=== PATIENT | female | born 1945 | race Two or more races ===

== ENCOUNTER 2016-12-05 06:34 | Inpatient (IN) | payer OTHER, MEDICAID ==
[~2016-12-05] VITALS: Ht 154.9 cm; Wt 72.8 kg
[~2016-12-05 06:34] MED LIST: CARI-277 PO; FERR324T4 PO; HYDR-1421 PO; LORA2TAB89 PO; METO-158 PO; METO25TA3; OMEP20TA44 PO; PRO10T GT
[2016-12-05] MEDS ORDERED: SODIUM CHLORIDE 0.9% 1,000 ML IV ONE (07:18)
[2016-12-05 08:03] LABS: Basophils # (auto) 0 uL; Basophils % (auto) 0.6 % (0.0-2.0); CONDITION Y; Eosinophils # (auto) 0.1 uL; Eosinophils % (auto) 1.8 % (0.0-7.0); Hematocrit 41.1 % (36.0-46.0); Hemoglobin 13.8 g/dL (12.2-16.2); Lymphocytes # (auto) 1.1 uL; Lymphocytes % (auto) 19.8 % (10.0-50.0); Mean Corpuscular Hemoglobin 29.6 pg (28.0-32.0); Mean Corpuscular Hgb Conc. 33.5 g/dL (32.0-36.0); Mean Corpuscular Volume 88.4 fL (80.0-100.0); Mean Platelet Volume 7.4 fL (7.4-10.4); Monocytes # (auto) 0.5 uL; Monocytes % (auto) 8.4 % (0.0-12.0); Neutrophils # (auto) 3.9 uL; Neutrophils % (auto) 69.4 % (37.0-80.0); Platelet Count (auto) 230 10^3/uL (140-450); Red Cell Distribution Width 15.6 % (11.6-16.0); White Blood Cell 5.6 10^3/uL (4.4-10.8)
[2016-12-05 08:15] LABS: INR 0.95 (0.9-1.15); Partial Thromboplastin Time 25.1 sec (22.64-33.71); Prothrombin Time 10.4 sec (9.37-12.3)
[2016-12-05 08:30] LABS: B-Type Natriuretic Peptide 183.31 pg/mL (0-100)
[2016-12-05 08:38] LABS: Albumin 3.2 g/dL (3.4-5.0); Alkaline Phosphatase 117 U/L (45-117); Anion Gap 12 (5-15); Aspartate Aminotransferase 14 U/L (15-37); BUN/Creatinine Ratio 18.9; Bilirubin, Total 0.2 mg/dL (0.2-1.0); Blood Urea Nitrogen 21 mg/dL (7-18); Calcium 8.6 mg/dL (8.5-10.1); Carbon Dioxide 23 mmol/L (21-32); Chloride 112 mmol/L (98-107); GFR African American 62 mL/min; GFR Non-African American 52 mL/min; Glucose 107 mg/dL (74-106); Potassium 3.7 mmol/L (3.5-5.1); Sodium 147 mmol/L (136-145); Total Protein 6.4 g/dL (6.4-8.2)
[2016-12-05] MEDS: SODIUM CHLORIDE 0.9% 1,000 ML IV SCH ×2 (09:24→20:26)
[2016-12-05] MEDS ORDERED: ACETAMINOPHEN 500 MG TAB PO PRN (09:30)
[2016-12-05] MEDS ORDERED: CARISOPRODOL 350 MG TAB PO PRN (09:30)
[2016-12-05] MEDS ORDERED: HYDROcodone-ACET 5/325MG TAB PO PRN (09:30)
[2016-12-05] MEDS ORDERED: TEMAZEPAM 15 MG CAP PO PRN (09:30)
[2016-12-05] MEDS ORDERED: NITROGLYCERIN 0.4 MG SL TAB SL PRN (09:30)
[2016-12-05] MEDS ORDERED: PROMETHAZINE HCL 25 MG/ML 1ML IV PRN (09:30)
[2016-12-05] MEDS ORDERED: LORazepam 0.5 MG TAB PO PRN ×2 (09:30)
[2016-12-05] MEDS ORDERED: MORPHINE SULF INJ 2 MG/ML SYRINGE 1ML IV PRN (09:30)
[2016-12-05] MEDS ORDERED: LACTULOSE 20Gm/30ML SOLN PO PRN (09:30)
[2016-12-05] MEDS ORDERED: FUR20T (09:43)
[2016-12-05] MEDS ORDERED: POTA1TAB4 (09:43)
[2016-12-05] MEDS ORDERED: LISI10TA6 (09:43)
[2016-12-05] MEDS: METOPROLOL TARTRATE 50 MG TAB PO SCH ×2 (10:00→21:39)
[2016-12-05] MEDS ORDERED: FERROUS SULFATE 324 MG PO SCH (10:00)
[2016-12-05] MEDS: LEVOFLOXACIN 500MG 100 ML IV SCH (10:27)
[2016-12-05] MEDS: ENOXAPARIN SOD 40 MG/0.4 ML SYRINGE SC SCH (10:28)
[2016-12-05] MEDS: PANTOPRAZOLE 40 MG TAB PO SCH (10:28)
[2016-12-05] MEDS: FERROUS SULFATE 325 MG TAB PO SCH (10:28)
[2016-12-05] MEDS: CLINDAMYCIN 600MG IV 50 ML IV SCH ×2 (14:00→21:39)
[2016-12-05 17:15] VITALS: BP 139/56
[2016-12-05 20:00] VITALS: BP 144/77
[2016-12-05] MEDS: MORPHINE SULFATE 4 MG/ML SYRG IV PRN (21:40)
[2016-12-05 22:00] VITALS: BP 144/77
[2016-12-06 05:30] VITALS: BP 143/93
[2016-12-06] MEDS: SODIUM CHLORIDE 0.9% 1,000 ML IV SCH (05:35)
[2016-12-06] MEDS: CLINDAMYCIN 600MG IV 50 ML IV SCH (05:35)
[2016-12-06 05:39] LABS: Basophils # (auto) 0 uL; Basophils % (auto) 0.4 % (0.0-2.0); CONDITION Y; Eosinophils # (auto) 0.1 uL; Eosinophils % (auto) 2.3 % (0.0-7.0); Hematocrit 36.7 % (36.0-46.0); Hemoglobin 12.3 g/dL (12.2-16.2); Lymphocytes # (auto) 1.4 uL; Lymphocytes % (auto) 29.4 % (10.0-50.0); Mean Corpuscular Hemoglobin 29.6 pg (28.0-32.0); Mean Corpuscular Hgb Conc. 33.5 g/dL (32.0-36.0); Mean Corpuscular Volume 88.1 fL (80.0-100.0); Mean Platelet Volume 7.6 fL (7.4-10.4); Monocytes # (auto) 0.4 uL; Monocytes % (auto) 9.4 % (0.0-12.0); Neutrophils # (auto) 2.7 uL; Neutrophils % (auto) 58.5 % (37.0-80.0); Platelet Count (auto) 185 10^3/uL (140-450); Red Cell Distribution Width 15.8 % (11.6-16.0); White Blood Cell 4.7 10^3/uL (4.4-10.8)
[2016-12-06 05:58] LABS: Potassium 3.7 mmol/L (3.5-5.1)
[2016-12-06 06:06] LABS: Albumin 2.6 g/dL (3.4-5.0); BUN/Creatinine Ratio 20.5; Calcium 8.2 mg/dL (8.5-10.1)
[2016-12-06 06:08] LABS: Bilirubin, Total 0.3 mg/dL (0.2-1.0); Total Protein 5.3 g/dL (6.4-8.2)
[2016-12-06 08:00] VITALS: BP 144/77
[2016-12-06] MEDS: FERROUS SULFATE 325 MG TAB PO SCH (08:57)
[2016-12-06] MEDS: METOPROLOL TARTRATE 50 MG TAB PO SCH (08:57)
[2016-12-06] MEDS: LEVOFLOXACIN 500MG 100 ML IV SCH (08:57)
[2016-12-06 09:00] VITALS: BP 164/90
[2016-12-06] MEDS: PANTOPRAZOLE 40 MG TAB PO SCH (09:02)
[2016-12-06] MEDS: MORPHINE SULFATE 4 MG/ML SYRG IV PRN (09:02)
[2016-12-06] MEDS: ENOXAPARIN SOD 40 MG/0.4 ML SYRINGE SC SCH (09:02)
[2016-12-06 12:18] VITALS: BP 164/90
== END 2016-12-06 13:08 | disposition home or self-care (01) | DRG 607 ==
LOC: ER 06:34 → TELE 06:35 → TELE-E-ADS 12:32 → TELE-WESTW 16:39
PROVIDERS: ADMIT Internal Medicine; ATTEND Internal Medicine Geriatric Medicine
DX: I89.0 Lymphedema, not elsewhere classified (principal); I11.9 Hypertensive heart disease without heart failure; M19.90 Unspecified osteoarthritis, unspecified site; K21.9 Gastro-esophageal reflux disease without esophagitis; F41.9 Anxiety disorder, unspecified; Z83.3 Family history of diabetes mellitus; Z85.41 Personal history of malignant neoplasm of cervix uteri; Z90.49 Acquired absence of other specified parts of digestive tract; Z82.3 Family history of stroke; Z82.49 Family history of ischemic heart disease and other diseases of the circulatory system; Z79.899 Other long term (current) drug therapy; Z90.710 Acquired absence of both cervix and uterus; Z98.51 Tubal ligation status; Z88.0 Allergy status to penicillin; Z91.041 Radiographic dye allergy status
CPT/HCPCS: 36415; 71010; 72195; 80053; 83880; 84484; 85025; 85379; 85610; 85652; 85730; 87040; 93971; 94761; 96361; 96365; 96367; 96372; J1956; J3490

== ENCOUNTER 2017-01-08 15:26 | Emergency (ER) | payer OTHER, MEDICAID ==
[~2017-01-08] VITALS: Ht 152.4 cm; Wt 65.8 kg
[~2017-01-08 15:26] MED LIST changes: +FUR20T; +LISI10TA6; +POTA1TAB4
[2017-01-08 16:41] LABS: Albumin 3.4 g/dL (3.4-5.0); BUN/Creatinine Ratio 13.9; Bilirubin, Total 0.2 mg/dL (0.2-1.0); Potassium 3.3 mmol/L (3.5-5.1); Total Protein 6.6 g/dL (6.4-8.2)
[2017-01-08 17:42] LABS: Basophils # (auto) 0 uL; Basophils % (auto) 0.3 % (0.0-2.0); CONDITION Y; Eosinophils # (auto) 0.1 uL; Eosinophils % (auto) 0.9 % (0.0-7.0); Hematocrit 40.1 % (36.0-46.0); Hemoglobin 13.8 g/dL (12.2-16.2); Lymphocytes % (auto) 13.8 % (10.0-50.0); Mean Corpuscular Hemoglobin 30.8 pg (28.0-32.0); Mean Corpuscular Hgb Conc. 34.4 g/dL (32.0-36.0); Mean Corpuscular Volume 89.6 fL (80.0-100.0); Mean Platelet Volume 8.5 fL (6.9-10.8); Monocytes # (auto) 0.3 uL; Monocytes % (auto) 4.5 % (0.0-12.0); Neutrophils # (auto) 5.6 uL; Neutrophils % (auto) 80.5 % (37.0-80.0); Platelet Count (auto) 108 10^3/uL (140-450); Red Cell Distribution Width 15.4 % (11.8-14.3); White Blood Cell 6.9 10^3/uL (4.4-10.8)
[2017-01-08] MEDS ORDERED: ONDANSETRON HCL 4 MG/2 ML VIAL IV ONE (23:30)
[2017-01-08] MEDS ORDERED: MORPHINE SULF INJ 2 MG/ML SYRINGE 1ML IV ONE (23:30)
[2017-01-09 01:49] VITALS: BP 112/82
== END 2017-01-09 01:54 | disposition home or self-care (01) ==
LOC: ER 15:27
DX: S16.1XXA Strain of muscle, fascia and tendon at neck level, initial encounter (principal); I10 Essential (primary) hypertension; Z88.0 Allergy status to penicillin; M79.605 Pain in left leg; K21.9 Gastro-esophageal reflux disease without esophagitis; M19.90 Unspecified osteoarthritis, unspecified site; Z88.8 Allergy status to other drugs, medicaments and biological substances; Z90.89 Acquired absence of other organs; Z98.51 Tubal ligation status; Z90.49 Acquired absence of other specified parts of digestive tract; R79.1 Abnormal coagulation profile; X58.XXXA Exposure to other specified factors, initial encounter; Y93.89 Activity, other specified; Y99.8 Other external cause status; Y92.89 Other specified places as the place of occurrence of the external cause
CPT/HCPCS: 36415; 71010; 72125; 80053; 85025; 85379; 93005; 93971; 96374; 96375; 99285; J2270; J2405

== ENCOUNTER 2017-11-23 17:22 | Observation (INO) | payer OTHER ==
[~2017-11-23] VITALS: Ht 152.4 cm; Wt 68.0 kg
[~2017-11-23 17:22] MED LIST changes: -METO25TA3; +METO25TA4
[2017-11-23 19:21] LABS: Basophils # (auto) 0.1 uL; Basophils % (auto) 0.5 % (0.0-2.0); Eosinophils # (auto) 0 uL; Eosinophils % (auto) 0.2 % (0.0-7.0); Hematocrit 40.1 % (36.0-46.0); Hemoglobin 13.7 g/dL (12.2-16.2); Lymphocytes # (auto) 1.2 uL; Lymphocytes % (auto) 11.7 % (10.0-50.0); Mean Corpuscular Hemoglobin 31.8 pg (28.0-32.0); Mean Corpuscular Hgb Conc. 34.2 g/dL (32.0-36.0); Mean Corpuscular Volume 93.1 fL (80.0-100.0); Monocytes % (auto) 9.7 % (0.0-12.0); Neutrophils # (auto) 7.9 uL; Neutrophils % (auto) 77.9 % (37.0-80.0); Platelet Count (auto) 306 10^3/uL (140-450); Red Blood Cells 4.31 10^6/uL (4.0-5.20); Red Cell Distribution Width 14.9 % (11.8-14.3); White Blood Cell 10.2 10^3/uL (4.4-10.8)
[2017-11-23 19:48] LABS: Albumin 3.1 g/dL (3.4-5.0); BUN/Creatinine Ratio 7.7; Bilirubin, Total 0.8 mg/dL (0.2-1.0); Potassium 3.4 mmol/L (3.5-5.1); Total Protein 7.5 g/dL (6.4-8.2)
[2017-11-23] MEDS ORDERED: KETOROLAC TROMETH 30 MG/ML 1ML VIAL IV ONE (21:30)
[2017-11-23 23:38] LABS: Urine Bacteria MANY /hpf (None Seen); Urine Blood 2+ /uL (Negative); Urine Hyaline Cast MOD /lpf (0 - 2); Urine Mucus FEW (None Seen); Urine WBC 16 /hpf (0 - 5)
[2017-11-23 23:49] LABS: Alcohol, Urine < 3.0 mg/dL (0-5); Amphetamine Screen, Urine NEGATIVE (NEGATIVE); Barbiturate Scree,Urine NEGATIVE (NEGATIVE); Benzodiazephine Screen, Urine POSITIVE (NEGATIVE); Cannabinoid Screen, Urine NEGATIVE (NEGATIVE); Cocaine Screen, Urine NEGATIVE (NEGATIVE); Opiate Scree,Urine NEGATIVE (NEGATIVE); Phencyclidine Screen, Urine NEGATIVE (NEGATIVE)
[2017-11-24 00:45] VITALS: BP 116/65
== END 2017-11-24 01:01 | disposition home or self-care (01) | DRG 921 ==
LOC: EDBD 17:22 → ER 17:31 → OVERFLOW 17:32 → ER 11-24 01:01
PROVIDERS: ADMIT Anesthesiology; ATTEND Anesthesiology
DX: T88.7XXA Unspecified adverse effect of drug or medicament, initial encounter (principal); I10 Essential (primary) hypertension; K21.9 Gastro-esophageal reflux disease without esophagitis; Z85.41 Personal history of malignant neoplasm of cervix uteri; W19.XXXA Unspecified fall, initial encounter; Y92.89 Other specified places as the place of occurrence of the external cause; Y93.89 Activity, other specified; Y99.8 Other external cause status
CPT/HCPCS: 36415; 73020; 80053; 80307; 80320; 81001; 85025; 96374; 99285; G0378; J1885

== ENCOUNTER 2018-01-28 09:05 | Inpatient (IN) | payer OTHER, MEDICAID ==
[~2018-01-28] VITALS: Ht 154.9 cm; Wt 61.9 kg
[2018-01-28 10:56] LABS: Basophils # (auto) 0 uL; Basophils % (auto) 0.2 % (0.0-2.0); Eosinophils # (auto) 0 uL; Hematocrit 39.5 % (36.0-46.0); Hemoglobin 13.3 g/dL (12.2-16.2); Lymphocytes # (auto) 0.6 uL; Lymphocytes % (auto) 5.8 % (10.0-50.0); Mean Corpuscular Hemoglobin 31.3 pg (28.0-32.0); Mean Corpuscular Hgb Conc. 33.8 g/dL (32.0-36.0); Mean Corpuscular Volume 92.6 fL (80.0-100.0); Monocytes # (auto) 0.8 uL; Monocytes % (auto) 7.2 % (0.0-12.0); Neutrophils # (auto) 9.5 uL; Neutrophils % (auto) 86.8 % (37.0-80.0); Platelet Count (auto) 419 10^3/uL (140-450); Red Blood Cells 4.27 10^6/uL (4.0-5.20); White Blood Cell 10.9 10^3/uL (4.4-10.8)
[2018-01-28] MEDS ORDERED: SODIUM CHLORIDE 0.9% 1,000 ML IVB ONE (10:56)
[2018-01-28 11:11] LABS: INR 1.01 (0.9-1.15); Partial Thromboplastin Time 30.9 sec (23.78-33.04); Prothrombin Time 10.8 sec (9.27-12.13)
[2018-01-28 11:16] LABS: Alanine Aminotransferase 16 U/L (13-56); Albumin 3.4 g/dL (3.4-5.0); Alkaline Phosphatase 112 U/L (45-117); Anion Gap 14 (5-15); Aspartate Aminotransferase 15 U/L (15-37); BUN/Creatinine Ratio 16.9; Bilirubin, Total 0.7 mg/dL (0.2-1.0); Blood Alcohol < 3.0 mg/dL (0-5); Blood Urea Nitrogen 46 mg/dL (7-18); Calcium 8.9 mg/dL (8.5-10.1); Carbon Dioxide 23 mmol/L (21-32); Chloride 100 mmol/L (98-107); GFR African American 22 mL/min; GFR Non-African American 18 mL/min; Glucose 105 mg/dL (74-106); Magnesium 2.1 mg/dL (1.6-2.6); Potassium 3.2 mmol/L (3.5-5.1); Sodium 137 mmol/L (136-145); Total Protein 7.6 g/dL (6.4-8.2)
[2018-01-28] MEDS ORDERED: SODIUM CHLORIDE 0.9% 1,000 ML IV SCH (13:18)
[2018-01-28] MEDS ORDERED: LABETALOL HCL 5 MG/ML ML 20ML VIAL IV PRN (13:30)
[2018-01-28] MEDS ORDERED: LACTULOSE 20Gm/30ML SOLN PO PRN (13:30)
[2018-01-28] MEDS ORDERED: TEMAZEPAM 15 MG CAP PO PRN (13:30)
[2018-01-28] MEDS ORDERED: POTASSIUM CHL 20 Meq TABLET PO ONE (13:30)
[2018-01-28] MEDS ORDERED: ACETAMINOPHEN 500 MG TAB PO PRN (13:30)
[2018-01-28] MEDS ORDERED: MORPHINE SULFATE 4 MG/ML SYR/VIAL IV PRN ×2 (13:30)
[2018-01-28] MEDS ORDERED: NITROGLYCERIN 0.4 MG SL TAB SL PRN (13:30)
[2018-01-28] MEDS ORDERED: LORazepam 0.5 MG TAB PO PRN (13:30)
[2018-01-28] MEDS ORDERED: ONDANSETRON HCL 4 MG/2 ML VIAL IV PRN (13:30)
[2018-01-28] MEDS ORDERED: CLINDAMYCIN 600MG IV 50 ML IV ONE (14:30)
[2018-01-28] MEDS ORDERED: ASPirin 81 mg TAB PO ONE (14:30)
[2018-01-28] MEDS ORDERED: LEVOFLOXACIN 500MG 100 ML IV ONE (15:00)
[2018-01-28] MEDS ORDERED: HALOPERIDOL LACTATE 5 MG/ML INJ VIAL IM PRN (15:45)
[2018-01-28] MEDS ORDERED: LORazepam 2MG/ML-1ML VIAL IV PRN (15:45)
[2018-01-28] MEDS ORDERED: ENOXAPARIN SOD 80 MG/0.8ML SYRINGE SC ONE (16:15)
[2018-01-28 17:15] LABS: CRP High Sensitivity 12.1 mg/dL (< 0.3)
[2018-01-28 19:00] VITALS: BP 95/50
[2018-01-28] MEDS: SOD CHL 0.9%/ KCL 20MEQ 1,000 ML IV SCH (21:29)
[2018-01-28] MEDS: CLINDAMYCIN 600MG IV 50 ML IV SCH (21:29)
[2018-01-28] MEDS: ATORVASTATIN 20 MG TAB PO SCH (21:30)
[2018-01-28 21:41] VITALS: BP 110/71
[2018-01-28 21:45] VITALS: BP 128/80
[2018-01-28 22:36] LABS: Protein, Urine 41.3 mg/dL (0.0-11.9); Urine Bacteria FEW /hpf (None Seen); Urine Blood Negative /uL (Negative); Urine Budding Yeast FEW /hpf (None Seen); Urine Hyaline Cast MOD /lpf (0 - 2); Urine Specific Gravity 1.017 (1.001-1.035); Urine WBC 1 /hpf (0 - 5)
[2018-01-28 22:43] LABS: Amphetamine Screen, Urine NEGATIVE (NEGATIVE); Barbiturate Scree,Urine NEGATIVE (NEGATIVE); Benzodiazephine Screen, Urine NEGATIVE (NEGATIVE); Cannabinoid Screen, Urine NEGATIVE (NEGATIVE); Cocaine Screen, Urine NEGATIVE (NEGATIVE); Opiate Scree,Urine POSITIVE (NEGATIVE); Phencyclidine Screen, Urine NEGATIVE (NEGATIVE)
[2018-01-29] MEDS: CLINDAMYCIN 600MG IV 50 ML IV SCH ×3 (05:36→21:37)
[2018-01-29 06:26] VITALS: BP 153/96
[2018-01-29 06:32] LABS: Basophils # (auto) 0.1 uL; Basophils % (auto) 1.4 % (0.0-2.0); Eosinophils # (auto) 0.1 uL; Eosinophils % (auto) 1.3 % (0.0-7.0); Hematocrit 35.5 % (36.0-46.0); Hemoglobin 11.7 g/dL (12.2-16.2); Lymphocytes # (auto) 0.9 uL; Lymphocytes % (auto) 17.5 % (10.0-50.0); Mean Corpuscular Hemoglobin 30.7 pg (28.0-32.0); Mean Corpuscular Hgb Conc. 32.9 g/dL (32.0-36.0); Mean Corpuscular Volume 93.2 fL (80.0-100.0); Monocytes # (auto) 0.6 uL; Monocytes % (auto) 11.4 % (0.0-12.0); Neutrophils # (auto) 3.5 uL; Neutrophils % (auto) 68.4 % (37.0-80.0); Platelet Count (auto) 325 10^3/uL (140-450); Red Blood Cells 3.81 10^6/uL (4.0-5.20); Red Cell Distribution Width 16.2 % (11.8-14.3); White Blood Cell 5.1 10^3/uL (4.4-10.8)
[2018-01-29] MEDS: SOD CHL 0.9%/ KCL 20MEQ 1,000 ML IV SCH ×2 (06:35→21:37)
[2018-01-29 06:52] LABS: Cholesterol 125 mg/dL (< 200); HDL Cholesterol 33 mg/dL (40-59); LDL Cholesterol 86 mg/dL (< 100); Triglycerides 176 mg/dL (< 150)
[2018-01-29 07:01] LABS: Alanine Aminotransferase 18 U/L (13-56); Albumin 2.7 g/dL (3.4-5.0); Alkaline Phosphatase 92 U/L (45-117); Anion Gap 11 (5-15); Aspartate Aminotransferase 23 U/L (15-37); BUN/Creatinine Ratio 22.2; Bilirubin, Total 0.7 mg/dL (0.2-1.0); Blood Urea Nitrogen 41 mg/dL (7-18); Calcium 8.6 mg/dL (8.5-10.1); Carbon Dioxide 23 mmol/L (21-32); Chloride 109 mmol/L (98-107); GFR African American 35 mL/min; GFR Non-African American 29 mL/min; Glucose 82 mg/dL (74-106); Potassium 3.7 mmol/L (3.5-5.1); Sodium 143 mmol/L (136-145); Total Protein 6.4 g/dL (6.4-8.2)
[2018-01-29 09:00] VITALS: BP 112/69
[2018-01-29] MEDS: ENOXAPARIN SOD 30 MG/0.3 ML SYRINGE SC SCH (10:00)
[2018-01-29] MEDS ORDERED: LEVOFLOXACIN 500MG 100 ML IV SCH (10:00)
[2018-01-29] MEDS ORDERED: CYANOCOBALAMIN (B-12) 1000 MCG/1 ML VIAL SUBCUT ONE (10:15)
[2018-01-29] MEDS: PANTOPRAZOLE 40 MG TAB PO SCH (10:37)
[2018-01-29] MEDS: HYDROcodone-ACET 5/325MG TAB PO PRN ×2 (10:38→22:38)
[2018-01-29] MEDS: ASPirin 81 mg TAB PO SCH (10:38)
[2018-01-29 14:27] VITALS: BP 117/78
[2018-01-29 18:07] VITALS: BP 113/83
[2018-01-29] MEDS: ATORVASTATIN 20 MG TAB PO SCH (21:37)
[2018-01-29 22:00] VITALS: BP 110/70
[2018-01-30] MEDS ORDERED: METOPROLOL TARTRATE 50 MG TAB ONE (03:06)
[2018-01-30] MEDS ORDERED: METOPROLOL SUCCINATE XL 50 MG TAB PO ONE ×2 (03:15→06:30)
[2018-01-30 04:26] VITALS: BP 124/69
[2018-01-30] MEDS: CLINDAMYCIN 600MG IV 50 ML IV SCH ×2 (05:55→14:41)
[2018-01-30] MEDS ORDERED: DIGOXIN 0.25 MG TAB PO ONE ×2 (06:45→07:15)
[2018-01-30 08:00] VITALS: BP 117/74
[2018-01-30 08:31] LABS: Albumin 2.5 g/dL (3.4-5.0); BUN/Creatinine Ratio 15.8; Calcium 8.4 mg/dL (8.5-10.1); Potassium 3.9 mmol/L (3.5-5.1)
[2018-01-30 08:33] LABS: Bilirubin, Total 0.4 mg/dL (0.2-1.0); Total Protein 6.3 g/dL (6.4-8.2)
[2018-01-30 09:00] VITALS: BP 111/78
[2018-01-30] MEDS ORDERED: LEVOFLOXACIN 250MG 50 ML IV SCH (10:00)
[2018-01-30] MEDS: PANTOPRAZOLE 40 MG TAB PO SCH (10:00)
[2018-01-30] MEDS ORDERED: METOPROLOL SUCCINATE XL 50 MG TAB PO SCH (10:00)
[2018-01-30] MEDS: SOD CHL 0.9%/ KCL 20MEQ 1,000 ML IV SCH (11:23)
[2018-01-30] MEDS: ENOXAPARIN SOD 30 MG/0.3 ML SYRINGE SC SCH (11:26)
[2018-01-30] MEDS: ASPirin 81 mg TAB PO SCH (11:49)
[2018-01-30] MEDS: HYDROcodone-ACET 5/325MG TAB PO PRN (14:41)
[2018-01-30 16:23] VITALS: BP 117/74
== END 2018-01-30 17:00 | DRG 602 ==
LOC: EDBD 09:05 → ER 09:05 → TELE 09:06 → TELE-WESTW 18:19
PROVIDERS: ADMIT Internal Medicine; ATTEND Internal Medicine
DX: L03.116 Cellulitis of left lower limb (principal); N17.0 Acute kidney failure with tubular necrosis; E44.1 Mild protein-calorie malnutrition; I13.0 Hypertensive heart and chronic kidney disease with heart failure and stage 1 through stage 4 chronic kidney disease, or unspecified chronic kidney disease; N18.4 Chronic kidney disease, stage 4 (severe); E87.6 Hypokalemia; F41.9 Anxiety disorder, unspecified; I50.9 Heart failure, unspecified; K21.9 Gastro-esophageal reflux disease without esophagitis; Z88.0 Allergy status to penicillin; Z88.3 Allergy status to other anti-infective agents; Z91.041 Radiographic dye allergy status; Z79.899 Other long term (current) drug therapy; M19.90 Unspecified osteoarthritis, unspecified site; Z90.710 Acquired absence of both cervix and uterus; Z90.49 Acquired absence of other specified parts of digestive tract; Z98.51 Tubal ligation status; Z85.41 Personal history of malignant neoplasm of cervix uteri; Z68.25 Body mass index [BMI] 25.0-25.9, adult; E86.0 Dehydration; F17.200 Nicotine dependence, unspecified, uncomplicated; K29.70 Gastritis, unspecified, without bleeding; Z79.82 Long term (current) use of aspirin; Z82.3 Family history of stroke; Z82.49 Family history of ischemic heart disease and other diseases of the circulatory system; Z83.3 Family history of diabetes mellitus; Z85.42 Personal history of malignant neoplasm of other parts of uterus; Z86.73 Personal history of transient ischemic attack (TIA), and cerebral infarction without residual deficits; Z87.11 Personal history of peptic ulcer disease; Z80.9 Family history of malignant neoplasm, unspecified; Z84.89 Family history of other specified conditions
CPT/HCPCS: 36415; 51702; 70450; 70551; 71046; 76775; 80053; 80061; 80307; 80320; 81001; 82150; 82550; 82570; 82607; 82962; 83690; 83735; 84156; 84300; 84443; 84484; 85025; 85379; 85610; 85652; 85730; 86141; 87040; 93005; 93306; 93886; 93970; 95819; 96361; 96365; 97116; 97530; A6257; J1956; J3490

== ENCOUNTER 2018-03-31 10:28 | Emergency (ER) | payer OTHER, MEDICAID ==
[~2018-03-31] VITALS: Ht 154.9 cm; Wt 59.0 kg
[2018-03-31] MEDS: MORPHINE SULFATE 4 MG/ML SYR/VIAL IV ONE ×2 (11:13→11:14)
[2018-03-31] MEDS: ONDANSETRON HCL 4 MG/2 ML VIAL IV ONE ×2 (11:13)
[2018-03-31] MEDS: MORPHINE SULF INJ 2 MG/ML SYRINGE 1ML ONE (11:14)
[2018-03-31] MEDS: LORazepam 2MG/ML-1ML VIAL IV ONE (11:19)
[2018-03-31 11:31] LABS: Basophils # (auto) 0 uL; Basophils % (auto) 0.2 % (0.0-2.0); Eosinophils # (auto) 0 uL; Hematocrit 44.9 % (36.0-46.0); Hemoglobin 14.7 g/dL (12.2-16.2); Lymphocytes # (auto) 0.6 uL; Lymphocytes % (auto) 5.6 % (10.0-50.0); Mean Corpuscular Hemoglobin 29.8 pg (28.0-32.0); Mean Corpuscular Hgb Conc. 32.8 g/dL (32.0-36.0); Mean Corpuscular Volume 90.9 fL (80.0-100.0); Monocytes # (auto) 0.9 uL; Monocytes % (auto) 7.8 % (0.0-12.0); Neutrophils # (auto) 9.6 uL; Neutrophils % (auto) 86.4 % (37.0-80.0); Platelet Count (auto) 254 10^3/uL (140-450); Red Blood Cells 4.93 10^6/uL (4.0-5.20); Red Cell Distribution Width 17.2 % (11.8-14.3); White Blood Cell 11.1 10^3/uL (4.4-10.8)
[2018-03-31 11:45] LABS: INR 0.93 (0.9-1.15); Partial Thromboplastin Time 31.7 sec (23.78-33.04)
[2018-03-31 11:47] LABS: Albumin 3.4 g/dL (3.4-5.0); Calcium 10.1 mg/dL (8.5-10.1)
[2018-03-31 11:50] LABS: BUN/Creatinine Ratio 17.8; Bilirubin, Total 0.7 mg/dL (0.2-1.0); Total Protein 7.7 g/dL (6.4-8.2)
[2018-03-31] MEDS: ASPirin 81 mg TAB PO ONE (12:37)
[2018-03-31 14:44] LABS: Amylase 19 U/L (25-115); Lipase 43 U/L (73-393)
[2018-03-31 15:53] LABS: Alcohol, Urine < 3.0 mg/dL (0-5); Amphetamine Screen, Urine NEGATIVE (NEGATIVE); Barbiturate Scree,Urine NEGATIVE (NEGATIVE); Benzodiazephine Screen, Urine NEGATIVE (NEGATIVE); Cannabinoid Screen, Urine NEGATIVE (NEGATIVE); Cocaine Screen, Urine NEGATIVE (NEGATIVE); Opiate Scree,Urine POSITIVE (NEGATIVE); Phencyclidine Screen, Urine NEGATIVE (NEGATIVE)
[2018-03-31 16:31] VITALS: BP 143/80
== END 2018-03-31 16:43 | disposition home or self-care (01) ==
LOC: EDBD 10:28 → ER 10:34
DX: I89.0 Lymphedema, not elsewhere classified (principal); F41.9 Anxiety disorder, unspecified; M19.90 Unspecified osteoarthritis, unspecified site; K21.9 Gastro-esophageal reflux disease without esophagitis; I11.0 Hypertensive heart disease with heart failure; I50.9 Heart failure, unspecified; Z90.49 Acquired absence of other specified parts of digestive tract; Z90.710 Acquired absence of both cervix and uterus; Z86.711 Personal history of pulmonary embolism; Z88.0 Allergy status to penicillin; Z79.899 Other long term (current) drug therapy
CPT/HCPCS: 36415; 71045; 74176; 80053; 80307; 82150; 83690; 83880; 84484; 85025; 85379; 85610; 85730; 93005; 93970; 94761; 96375; 99284; J2060; J2270; J2405; J7030